=== PATIENT | female | born 1990 | race Caucasian/White ===

== ENCOUNTER → 2016-09-05 | Outpatient (CLI) | payer OTHER ==
[~2016-09-05] MED LIST: IRON325 M1 PO; MOTRIN-DPS800 MG PO; PRENATAL VIT1 TAB PO
== END | disposition home or self-care (01) ==
LOC: PTH.S 09-02 15:45
DX: R03.0 Elevated blood-pressure reading, without diagnosis of hypertension (principal)

== ENCOUNTER 2016-09-09 06:40 | Inpatient (IN) | payer OTHER ==
[~2016-09-09] VITALS: Ht 165.1 cm; Wt 88.5 kg
--- NOTE | ~2016-09-09 | FD ---
ADMIT: 09/09/2016 RM/LOC: 227 [facility] MR#: [id number] [address] [place] [address] Final Diagnosis SEX: F AGE: 26 : 1990 ADMISSION DATE: 09/09/2016 DISCHARGE DATE: 09/11/2016 FINAL DIAGNOSES: 1. Status post spontaneous vaginal delivery. 2. History of intrauterine growth restriction in previous . 3. Obesity. 4. Gestational hypertension. 5. Rhesus negative. 6. Anemia during . PROCEDURE: Spontaneous vaginal delivery. Michaela Ortega MD/ keegan JOB #: [id number] CC: Michaela Ortega MD, Attending Physician Michaela Ortega MD, Family Physician
[~2016-09-09 06:40] MED LIST changes: -IRON325 M1 PO
[2016-09-12] MEDS ORDERED: IRON325 M1 PO (06:18)
--- NOTE | 2016-09-20 08:19 | OR ---
ADMIT: 09/09/2016 RM/LOC: 227 [facility] MR#: [id number] [address] TENISHA PITT [address] [place] [id number] Operative/Delivery Room Report SEX: F AGE: 26 : 1990 SURGERY DATE: 09/09/2016 SURGEON: Michaela Ortega MD DELIVERY NOTE: The patient delivered a viable female by spontaneous vaginal delivery at 1445 hours. A nuchal cord x1 was reduced. The infant was placed on the mother's abdomen, and the cord was doubly clamped and cut. The was handed off to the awaiting nurse. Cord blood was sent. The 's weight was 2720 g. scores were 8 and 9. The placenta then delivered spontaneously intact with a three-vessel cord. Twenty units of Pitocin were infused with intravenous fluids. An examination of the perineum revealed a first-degree laceration, which was hemostatic and required no repair. Estimated blood loss for the entire procedure was 300 mL. The patient and infant are in her room in stable condition. Michaela Ortega MD/ audi JOB #: [id number] CC: Michaela Ortega, Attending Physician Michaela Ortega, Family Physician
--- NOTE | 2016-09-20 08:19 | HP ---
ADMIT: 09/09/2016 RM/LOC: 227 [facility] MR#: [id number] [address] TENISHA PITT [address] [place] [address] History and Physical SEX: F AGE: 26 : 1990 DATE OF SERVICE: 09/09/2016 CHIEF COMPLAINT: Induction of labor. HISTORY OF PRESENT ILLNESS: The patient is a 26-year-old, 2, para 1-0- 0-1 with an intrauterine at 37 and 0/7th weeks by 9-week ultrasound, who presented to Labor and Delivery for induction of labor at term secondary to gestational hypertension. The patient was noted to have an elevated blood pressure in clinic last week. A 24-hour urine was performed which showed less than 300 mg of protein. On repeat examination this week, the patient did have persistently elevated blood pressures and was therefore diagnosed with gestational hypertension. She was recommended for induction of labor. PAST MEDICAL HISTORY: 1. History of intrauterine growth restriction in previous . 2. Obesity. 3. Anemia. 4. Rh negative status. 5. Gestational hypertension. PAST SURGICAL HISTORY: Appendectomy in 2011. FAMILY HISTORY: Paternal grandmother with breast cancer, cervical cancer. Paternal grandfather with myocardial infarction and diabetes. Maternal grandmother with thyroid cancer. Father with hyperlipidemia and hypertension. Paternal grandfather, maternal uncle, and paternal uncle with hypertension. SOCIAL HISTORY: The patient denies alcohol, tobacco, or illicit drug use. She is a former smoker. The patient is single but the father of the baby, Ty is involved. The patient is employed full-time at [employer]. MEDICATIONS: 1. vitamins 1 tablet p.o. daily. 2. Ferrous sulfate 325 mg p.o. daily. ALLERGIES: NO KNOWN MEDICAL ALLERGIES. REVIEW OF SYSTEMS: The patient denies vaginal bleeding, loss of fluid, uterine contractions, or decreased movement. OBSTETRICAL LABS: Blood type A negative. Antibody screen negative, RPR nonreactive, rubella immune, HIV negative, gonorrhea and chlamydia negative, hepatitis B surface antigen negative. Diabetic screen 129. Group B strep negative. PHYSICAL EXAMINATION: GENERAL: Well-developed, well-nourished, white female, alert and oriented x3 in no acute distress. VITAL SIGNS: Blood pressure 128/74, pulse 89, respirations 16, temperature 97.9 degrees Fahrenheit, height 5 feet 5 inches, weight 195 pounds. ADMIT: 09/09/2016 RM/LOC: 227 [facility] MR#: [id number] [address] [place] [address] History and Physical SEX: F AGE: 26 : 1990 HEENT: Head is normocephalic, atraumatic. Pupils are equal and round. Extraocular muscles are intact. NECK: Supple. Trachea midline. Thyroid not palpable. HEART: Regular rate and rhythm. LUNGS: Clear to auscultation bilaterally. ABDOMEN: Soft, nontender, gravid. EXTREMITIES: No clubbing, cyanosis, or edema. NEUROLOGIC: Cranial nerves II through XII grossly intact. 2+ deep tendon reflexes noted. PELVIC: Sterile vaginal examination on admission reveals the cervix to be 2.5 cm dilated, 60% effaced, -2 station. heart tones are in the 130s with 15 x 15 accelerations, moderate long-term variability, and no decelerations. No uterine contractions are noted on the monitor. ASSESSMENT AND PLAN: 1. This is a 26-year-old, 2, para 1-0-0-1 with intrauterine at 37 and 0/7th weeks by a 9-week ultrasound, who presents to Labor and Delivery for induction of labor at term secondary to gestational hypertension. 2. Gestational hypertension. A 24-hour urine and lab work showed no signs of preeclampsia or severe features. The patient will be monitored during labor for any progression. 3. Group B strep negative. 4. Fetus is vertex and overall reassuring. Michaela Ortega MD/ audi JOB #: [id number] CC: Michaela Ortega, Attending Physician Michaela Otrega, Family Physician
== END 2016-09-11 12:20 | disposition home or self-care (01) | DRG 775 ==
LOC: 2LDRP 06:40 → BC 06:40 → 2LDRP 06:41 → BC 09-30 08:00
PROVIDERS: ADMIT Obstetrics & Gynecology
PROC: 3E033VJ Introduction of Other Hormone into Peripheral Vein, Percutaneous Approach (ICD-10-PCS; principal; 2016-09-09)
PROC: 10E0XZZ Delivery of Products of Conception, External Approach (ICD-10-PCS; principal; 2016-09-09)
PROC: 10907ZC Drainage of Amniotic Fluid, Therapeutic from Products of Conception, Via Natural or Artificial Opening (ICD-10-PCS; principal; 2016-09-09)
PROC: 3E0234Z Introduction of Serum, Toxoid and Vaccine into Muscle, Percutaneous Approach (ICD-10-PCS; 2016-09-10)
DX: O13.4 Gestational [pregnancy-induced] hypertension without significant proteinuria, complicating childbirth (principal); E66.9 Obesity, unspecified; O99.02 Anemia complicating childbirth; D64.9 Anemia, unspecified; O69.81X0 Labor and delivery complicated by cord around neck, without compression, not applicable or unspecified; O75.89 Other specified complications of labor and delivery; O99.214 Obesity complicating childbirth; Z68.31 Body mass index [BMI] 31.0-31.9, adult; Z87.891 Personal history of nicotine dependence; Z3A.37 37 weeks gestation of pregnancy; Z37.0 Single live birth